=== PATIENT | female | born 1950 | race Caucasian/White ===

== ENCOUNTER 2020-12-27 12:42 | Outpatient (CLI) | payer MEDICARE ==
[~2020-12-27 12:42] MED LIST: BARIUM SULFATE 340 ML SUSP.RECON***PROCEDURE AREA ONLY**DONT ENTER PO ONE
== END 2020-12-27 23:59 | disposition home or self-care (01) ==
LOC: RAD 12:42
PROVIDERS: ATTEND General Practice
DX: R13.11 Dysphagia, oral phase (principal); R13.14 Dysphagia, pharyngoesophageal phase; R47.1 Dysarthria and anarthria; R49.0 Dysphonia; G20 Parkinson's disease
CPT/HCPCS: 74230